=== PATIENT | female | born 1980 | race African-American/Black ===

== ENCOUNTER 2022-05-17 19:32 | Emergency (ER) | payer MEDICAID ==
[~2022-05-17] VITALS: Ht 162.6 cm; Wt 80.0 kg
[2022-05-17] MEDS ORDERED: ACETAMINOPHEN 325MG TABLET PO ONE (21:30)
[2022-05-17] MEDS ORDERED: IBUP-2029 MT (22:23)
[2022-05-17] MEDS ORDERED: OXYC-485 MT (22:23)
[2022-05-17 23:59] VITALS: BP 111/71
== END 2022-05-18 00:01 | disposition home or self-care (01) ==
LOC: ER 19:32
DX: M25.522 Pain in left elbow (principal); W19.XXXA Unspecified fall, initial encounter; Y93.89 Activity, other specified; Y92.89 Other specified places as the place of occurrence of the external cause; Y99.8 Other external cause status
CPT/HCPCS: 29105; 29125; 73080; 73090; 81025; 99284; L3670